=== PATIENT | female | born 2000 | race Hispanic/Latino ===

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

== ENCOUNTER 2025-06-17 23:34 | Emergency (ER) | payer SELFPAY ==
[~2025-06-17] VITALS: Ht 154.9 cm; Wt 79.0 kg
--- NOTE | 2025-06-18 | ERN ---
ED Note History of Present Illness Stated Complaint: ABD PAIN, NAUSEA Chief Complaint: Abdominal Pain Time Seen by MD: 23:36 Time Seen by Midlevel: 23:36 Dictation: The patient is a 25-year-old female with a history of asthma who presents to the emergency department with complaints of generalized abdominal pain with nausea onset a week ago. Patient otherwise denies any fevers, denies diarrhea or constipation. Allergies: Coded Allergies: No Known Allergies (Unverified Allergy, Unknown, 06/17/25) Past Medical History Past Medical History: Asthma Additional Past Medical Hx: HYPOGLYCEMIA, SINUS PROBLEMS Surgical History: None LMP: May 01, 2025 RN Note Reviewed/Agreed w/PFSH: Yes Review of System Dictation Constitutional: Negative for fever,chills, and weight loss Eyes: Negative for injury, pain,redness, and discharge ENT: Negative for injury,pain or swelling Cardiovascular: Negative for chest pain, palpitations, and edema Respiratory: Negative for shortness of breath, cough, and wheezing, Abdomen/GI: Negative for vomiting, diarrhea, and constipation positive for abdominal pain, nausea Back: Negative for injury and pain : Negative for injury, bleeding and discharge MS/Extremity: Negative for injury and deformity Skin: Negative for rash, and discoloration Neuro: Negative for headache, weakness, numbness, tingling, and seizure Psych: Negative for suicide ideation, homicidal ideation, and hallucinations Initial Vital Sign VS Vital Signs Date Time Temp Pulse Resp B/P (MAP) Pulse Ox O2 Delivery O2 Flow Rate FiO2 06/17/25 23:35 98.1 78 20 100 Room Air 0 Physical Exam Dictation Vital Signs reviewed General Appearance: Alert, oriented x 3, no acute distress, well developed, nourished. Head and Face: non-traumatic. Eyes: PERRL, pink conjunctivas, eyelid no trauma, anterior chamber with arcus senilis. Ears: Pinnas intact and no signs of trauma or erythema ear canals clear and no discharge TM no erythema Nose: No discharge, no bleeding. Oropharynx: Mouth normal, tongue pink. pharynx clear,no erythema, tonsils no exudates, no abscesses noted, mucous membrane moist Neck: Supple, non-tender, no thyromegaly, no masses, no JVD, no bruits Breast:Deferred Chest:No tenderness, no crepitus, no paradoxical movement, no retractions Lungs:Clear, well-ventilated, symmetric, no rales, no wheezing, no rhonchi, no stridor, good breath sounds bilaterally Heart: Regular rate, regular rhythm, no murmur, no gallops Vascular: no peripheral edema, Abdomen: Soft, positive bowel sounds, nondistended, no guarding, nontender, no rebound, no masses no hepatomegaly, no splenomegaly, no Kumar's sign, no hernias. Rectal: Deferred Genital: Deferred Neurological: Normal speech, motor function intact, sensory function intact Musculoskeletal: Neck nontender, full range of motion, back nontender, full range of motion, Extremities: nontender, full range of motion Skin: Color pink, dry, no turgor, no rash, no lacerations, no abrasions, no contusions. Lymphatic: Deferred Results (Laboratory/Radiology) Laboratory/Radiology Laboratory Tests Test 06/17/25 23:44 06/17/25 23:54 06/18/25 00:00 Urine Color YELLOW (YELLOW) Urine Appearance CLOUDY (CLEAR) H Urine pH 5.5 (5.0-8.0) Urine Specific [place] 1.024 (1.001-1.031) Urine Protein 10 mg/dL (NEGATIVE) H Urine Glucose (UA) NEGATIVE mg/dL (NEGATIVE) Urine Ketones NEGATIVE mg/dL (NEGATIVE) Urine Occult Blood NEGATIVE (NEGATIVE) Urine Nitrate NEGATIVE (NEGATIVE) Urine Bilirubin NEGATIVE mg/dL (NEGATIVE) Urine Urobilinogen 0.2 mg/dL (0.2-1.0) Urine Leukocyte Esterase 500 Mary/uL (NEGATIVE) H Urine RBC 6-10 /HPF (0-1) H Urine WBC 51-100 /HPF (0-1) H Urine Squamous Epithelial Cells MANY /HPF (0-2) Urine Bacteria None /HPF (None Seen) Urine HCG, Qualitative POSITIVE (NEGATIVE) H Urine Opiates Screen NEGATIVE (NEGATIVE) Urine Barbiturates Screen NEGATIVE (NEGATIVE) Urine Phencyclidine Screen NEGATIVE (NEGATIVE) Urine Amphetamines Screen NEGATIVE (NEGATIVE) Urine Benzodiazepines Screen NEGATIVE (NEGATIVE) Urine Cocaine Screen NEGATIVE (NEGATIVE) Urine Marijuana (THC) Screen NEGATIVE (NEGATIVE) White Blood Count 9.2 K/uL (4.8-10.8) Red Blood Count 4.63 MIL/uL (4.00-5.50) Hemoglobin 13.9 g/dL (12.0-16.0) Hematocrit 40.0 % (36-48) Mean Corpuscular Volume 86.4 fL (79-99) Mean Corpuscular Hemoglobin 30.0 pg (27.0-33.0) Mean Corpuscular Hemoglobin Concent 34.8 g/dL (32.0-36.0) Red Cell Distribution Width 12.4 % (11.0-15.5) Platelet Count 190 K/uL (130-400) Mean Platelet Volume 12.1 fL (7.5-10.5) H Immature Granulocyte % (Auto) 0.3 % (0-1) Neutrophils (%) (Auto) 66.8 % (40.0-77.0) Lymphocytes (%) (Auto) 24.6 % (21.0-51.0) Monocytes (%) (Auto) 6.2 % (3.0-13.0) Eosinophils (%) (Auto) 1.4 % (0.0-8.0) Basophils (%) (Auto) 0.7 % (0.0-5.0) Neutrophils # (Auto) 6.1 K/uL (1.8-7.7) Lymphocytes # (Auto) 2.3 K/uL (1.0-4.8) Monocytes # (Auto) 0.6 K/uL (0.1-1.0) Eosinophils # (Auto) 0.13 K/uL (0.00-0.70) Basophils # (Auto) 0.06 K/uL (0.00-0.20) Absolute Immature Granulocyte (auto 0.03 K/uL (0-1) Nucleated Red Blood Cells 0.0 % (0.0-0.19) Sodium Level 140 mmol/L (136-145) Potassium Level 3.3 mmol/L (3.5-5.1) L Chloride Level 102 mmol/L (101-111) Carbon Dioxide Level 28 mmol/L (21-32) Blood Urea Nitrogen 7 mg/dL (7-18) Creatinine 0.7 mg/dL (0.5-1.0) Glomerular Filtration Rate Calc 122 mL/min (>90) Random Glucose 91 mg/dL (70-105) Total Calcium 9.4 mg/dL (8.5-10.1) Total Bilirubin 0.5 mg/dL (0.2-1.0) Direct Bilirubin 0.1 mg/dL (0.0-0.3) Aspartate Amino Transf (AST/SGOT) 17 U/L (10-37) Alanine Aminotransferase (ALT/SGPT) 16 U/L (12-78) Alkaline Phosphatase 50 U/L (50-136) Total Protein 8.3 g/dL (6.0-8.3) Albumin 4.4 g/dL (3.5-5.0) Lipase 30 U/L (16-77) Human Chorionic Gonadotropin, Quant 9873 mIU/mL (0-5) H REASON: abd pain ORDERING PHYSICIAN: RENAN WASHINGTON PROCEDURE: OB <14 - US OB <14 WEEKS EXAM: US Obstetrical, Complete <14 weeks CLINICAL HISTORY: Abdominal pain TECHNIQUE: Transabdominal imaging of the maternal pelvis and <14 week gestation with image documentation. COMPARISON: None provided. FINDINGS: GESTATION: Estimated gestational age: 5 weeks 5 days by ultrasound. A sac-like structure is seen within the endometrium, possibly a gestational sac. No yolk sac or pole is visualized at this time, which may reflect very early gestation or irregular menstrual cycles as reported by the patient. UTERUS: 9.5 ??? 5.8 ??? 7.4 cm. No myometrial mass identified. CERVIX: Closed. Unremarkable. RIGHT OVARY: 4.4 ??? 3.2 ??? 4.2 cm with normal flow. A right ovarian cyst is noted, measuring approximately 2.5 ??? 3.0 ??? 3.1 cm. LEFT OVARY: Adnexa within normal limits; left ovary partially obscured. FREE FLUID: None seen. IMPRESSION: A single intrauterine gestational sac-like structure is evident without pole or yolk sac at present. In conjunction with quantitative beta-hCG, findings may reflect a normal early , incomplete miscarriage, or an ectopic that is not seen. Recommend serial quantitative beta-hCG and short interval follow-up. Right ovarian cyst measuring 2.5 ??? 3.0 ??? 3.1 cm. No acute abnormality. /[facility] Reviewed?: Yes ED Course ED Course Orders Procedure Category Date Status Time Cbc With Differential LAB 06/17/25 Complete 23:42 ,Urine Test LAB 06/17/25 Complete 23:42 Urinalysis Profile LAB 06/17/25 Complete 23:42 0.9%Nacl 1000ml (Ns PHA 06/18/25 Complete 1000ml) 00:00 Ondansetron 4mg Inj PHA 06/18/25 Complete (Zofran 4mg Inj) 00:00 Pantoprazole 40mg Inj PHA 06/18/25 Complete (Protonix 40mg Inj 00:00 Lipase LAB 06/17/25 Complete 23:42 Basic Metabolic Panel LAB 06/17/25 Complete 23:42 Hepatic Function Panel LAB 06/17/25 Complete 23:42 Drug Screen Urine LAB 06/17/25 Complete 23:42 Hcg,Quantitative LAB 06/18/25 Complete 00:15 Us Ob <14 Weeks US 06/18/25 Resulted 00:15 Culture Urine MELCHOR 06/18/25 In Process 00:17 Ceftriaxone 1g Vial PHA 06/18/25 Complete (Rocephine 1g Inj) 00:30 Current Medications Medications (Trade) Dose Ordered Sig/Phyllis Route PRN Reason Start Time Stop Time Status Last Admin Dose Admin Ceftriaxone Sodium (ROCEphine 1G INJ) 1 gm ONCE ONCE IVPB 06/18/25 00:30 06/18/25 00:31 DC 06/18/25 00:48 Ondansetron HCl (zoFRAN 4MG INJ) 4 mg ONCE ONCE IVP 06/18/25 00:00 06/18/25 00:01 DC 06/18/25 00:23 Pantoprazole Sodium (PROTonix 40MG INJ) 40 mg ONCE ONCE IVP 06/18/25 00:00 06/18/25 00:01 DC 06/18/25 00:23 Sodium Chloride 1,000 ml @ 0 mls/hr ONCE ONCE IV 06/18/25 00:00 06/18/25 00:01 DC 06/18/25 00:23 Vital Signs Date Time Temp Pulse Resp B/P (MAP) Pulse Ox O2 Delivery O2 Flow Rate FiO2 06/17/25 23:35 98.1 78 20 100 Room Air 0 Medical Decision Making MDM The patient is a 25-year-old female with a history of asthma who presents to the emergency department with complaints of generalized abdominal pain with nausea onset a week ago. Patient otherwise denies any fevers, denies diarrhea or constipation. CBC showed no leukocytosis, no anemia, chemistry showed mild hypokalemia, hCG of 9873, urinalysis positive for leukocyte esterase. Patient was giving a dose of Rocephin and will be discharged on antibiotics. Ultrasound revealed single in juries during gestational sac structure evident without pole or yolk sac. patient is G1. On physical exam patient is in no acute distress, denies any vaginal bleeding or discharge. Patient will be discharged to follow up with PCP. Differential diagnosis: Gastritis, gastroenteritis, UTI, dehydration Need for hospitalization: Patient does not meet criteria for hospitalization. There are no social concerns with this patient. DX & DISP Disposition: Discharge Departure Impression: Primary Impression: Early stage of Additional Impression: UTI (urinary tract infection) Condition: Stable Scripts Cephalexin Monohydrate (Keflex) 500 Mg Cap 500 MG PO QID for 5 Days, #20 CAP Prov: RENAN WASHINGTON 06/18/25 Additional Instructions: Please follow up with your OBGYN as soon as possible. You will need a repeat u ltrasound and hCG levels. Take your antibiotics as prescribed. If anything worsens, you develop vaginal bleeding or severe abdominal pain please return to ER. FOLLOW-UP WITH PRIMARY CARE PROVIDER IN 1 TO 2 DAYS. TAKE MEDICATIONS DIRECTED HERE IN THE EMERGENCY ROOM. OKAY TO CONTINUE HOME MEDICATIONS UNLESS OTHERWISE DISCUSSED DURING YOUR VISIT IN THE EMERGENCY ROOM TODAY. RETURN TO YOUR NEAREST EMERGENCY ROOM IF SYMPTOMS WORSEN OR IF THERE IS NO IMPROVEMENT. CALL 911 IF YOU NEED IMMEDIATE ASSISTANCE. TAKE TYLENOL [id number] NEEDED AND IF NO CONTRAINDICATIONS ARE PRESENT. INCREASE ORAL HYDRATION. A WOUND CULTURE OR URINE CULTURE WAS ORDERED HERE IN THE EMERGENCY ROOM DEPARTMENT PLEASE FOLLOW-UP WITH PRIMARY CARE PROVIDER AND ADVISE THEM TO GET REPEAT PORTS FROM OUR FACILITY. IF YOU HAD ANY SIMRAN WRAP/SPLINTS THAT WERE APPLIED HERE, PLEASE DO NOT REMOVE THEM UNTIL YOU SEE YOUR PRIMARY CARE OR SPECIALTY. Referrals: MYRNA HEDRICK (PCP) NAZANIN LAL MD Time of Disposition: 02:33 I have reviewed the case, and I agree with, Diagnosis and Plan RENAN WASHINGTON Jun 17, 2025 23:59
[2025-06-18 00:08] LABS: IMMATURE GRANULOCYTE ABSOLUTE 0.03 K/uL (0-1); NUCLEATED RED BLOOD CELLS 0.0 % (0.0-0.19); PLATELET COUNT (AUTO) 190 K/uL (130-400); RED BLOOD CELL COUNT(AUTO) 4.63 MIL/uL (4.00-5.50); RED CELL DISTRIBUTION WIDTH 12.4 % (11.0-15.5); WHITE BLOOD COUNT (AUTO) 9.2 K/uL (4.8-10.8)
[2025-06-18 00:14] LABS: HCG,QUALITATIVE URINE POSITIVE (NEGATIVE)
[2025-06-18 00:15] LABS: APPEARANCE,URINE CLOUDY (CLEAR); GLUCOSE, URINE (UA) NEGATIVE (NEGATIVE); LEUKOCYTE ESTERASE ,URINE 500 Leu/uL (NEGATIVE); NITRATE,URINE NEGATIVE (NEGATIVE); OCCULT BLOOD,URINE NEGATIVE (NEGATIVE)
[2025-06-18 00:17] LABS: ADD UA MICROSCOPIC YES
[2025-06-18 00:20] LABS: SQUAMOUS EPITHELIAL CELL,UR MANY /HPF (0-2)
[2025-06-18 00:21] LABS: AMPHET/METH SCREEN,URINE NEGATIVE (NEGATIVE); BARBITURATE SCREEN, URINE NEGATIVE (NEGATIVE); CANNABINOID SCREEN,URINE NEGATIVE (NEGATIVE); COCAINE SCREEN,URINE NEGATIVE (NEGATIVE)
[2025-06-18 00:21] LABS: CREATININE 0.7 mg/dL (0.5-1.0); GLOMERULAR FILTR. RATE CALC 122.0 mL/min (>90); GLUCOSE,RANDOM 91.0 mg/dL (70-105); SODIUM SERUM 140.0 mmol/L (136-145); UREA NITROGEN, BLOOD 7.0 mg/dL (7-18)
[2025-06-18] MEDS: 0.9%NACL 1000ML 1,000 ML IV ONE (00:23)
[2025-06-18 00:25] LABS: ASPARTATE AMINOTRANSFERASE 17.0 U/L (10-37); TOTAL PROTEIN, SERUM 8.3 g/dL (6.0-8.3)
--- NOTE | 2025-06-18 02:25 | HMCIMG ---
EXAM: US Obstetrical, Complete <14 weeks CLINICAL HISTORY: Abdominal pain TECHNIQUE: Transabdominal imaging of the maternal pelvis and <14 week gestation with image documentation. COMPARISON: None provided. FINDINGS: GESTATION: Estimated gestational age: 5 weeks 5 days by ultrasound. A sac-like structure is seen within the endometrium, possibly a gestational sac. No yolk sac or pole is visualized at this time, which may reflect very early gestation or irregular menstrual cycles as reported by the patient. UTERUS: 9.5 ??? 5.8 ??? 7.4 cm. No myometrial mass identified. CERVIX: Closed. Unremarkable. RIGHT OVARY: 4.4 ??? 3.2 ??? 4.2 cm with normal flow. A right ovarian cyst is noted, measuring approximately 2.5 ??? 3.0 ??? 3.1 cm. LEFT OVARY: Adnexa within normal limits; left ovary partially obscured. FREE FLUID: None seen. IMPRESSION: A single intrauterine gestational sac-like structure is evident without pole or yolk sac at present. In conjunction with quantitative beta-hCG, findings may reflect a normal early , incomplete miscarriage, or an ectopic that is not seen. Recommend serial quantitative beta-hCG and short interval follow-up. Right ovarian cyst measuring 2.5 ??? 3.0 ??? 3.1 cm. No acute abnormality. /[facility]
[2025-06-18] MEDS ORDERED: CEPH500B PO (02:34)
[2025-06-18 02:46] VITALS: BP 104/57; PULSE 65; RESP 18; TEMP 98.2; O2SAT 100
== END 2025-06-18 02:49 | disposition home or self-care (01) ==
LOC: EDH 23:34
DX: O23.41 Unspecified infection of urinary tract in pregnancy, first trimester (principal); N39.0 Urinary tract infection, site not specified; O26.891 Other specified pregnancy related conditions, first trimester; J45.909 Unspecified asthma, uncomplicated; Z3A.01 Less than 8 weeks gestation of pregnancy; Z3A.00 Weeks of gestation of pregnancy not specified
CPT/HCPCS: 99285; 80076; 80048; 80305; 84702; 83690; 85025; 87086; 81025; 36415 ×2; 81001; 96374; 76801; 96375; J7030; J0696; J2405; J2470